=== PATIENT | female | born 1930 | race Native Hawaiian/Other Pacific Islander ===

== ENCOUNTER 2016-09-08 12:53 | Inpatient (IN) | payer OTHER ==
[~2016-09-08 12:53] MED LIST: ACCURETIC PO; ACCURETIC1 TAB OR; ACET5TAB36 PO; ACYCLOVIR800 MG PO; APAP/TRAMADL1 TAB PO; ATEN25TA21 PO; CARV6.25 PO; CLARITIN10 MG PO; COUMADIN1 MG PO; ESZO3TAB PO; FEXOFENADINE HC60 MG PO; GRALISE600 MG PO; HCTZ PO; HYDR25TA15 PO; LIPITOR10 MG PO; LOFIBRA67 MG PO; LUNESTA3 MG PO; MECL25TA84 PO; METH5TAB13 PO; METHYLPHENID5 MG PO; NEURONTIN 100M100 MG PO; WARF1TAB7 PO; WARF2TAB7 PO; [UNRECOGNIZED DRUG - OTHER] PO; [UNRECOGNIZED DRUG - OTHER] PO
== END 2016-10-02 08:09 | disposition still patient (30) ==
LOC: PAVB 12:53
PROVIDERS: ADMIT Family Medicine
DX: Z51.89 Encounter for other specified aftercare (principal)

== ENCOUNTER 2016-09-09 16:01 | Outpatient (CLI) | payer OTHER ==
[2016-09-09 16:15] LABS: PLATELET COUNT 257 K/uL (152-353)
[2016-09-09 17:03] LABS: POTASSIUM 3.6 mmol/L (3.6-5.2)
== END 2016-09-09 19:12 | disposition home or self-care (01) ==
LOC: LAB 16:01
PROVIDERS: Family Medicine
DX: I10 Essential (primary) hypertension (principal); E78.4 Other hyperlipidemia
CPT/HCPCS: 36415; 80053; 80061; 85027

== ENCOUNTER 2016-09-30 09:00 | Outpatient (CLI) | payer OTHER | END 2016-09-30 19:45 | disposition home or self-care (01) | LOC: RAD 09:00 | DX: M81.0 Age-related osteoporosis without current pathological fracture (principal) ==

== ENCOUNTER 2016-10-01 15:17 | Outpatient (CLI) | payer OTHER ==
[2016-10-01 16:00] LABS: POTASSIUM 3.7 mmol/L (3.6-5.2)
== END 2016-10-01 17:00 | disposition home or self-care (01) ==
LOC: LAB 15:17
PROVIDERS: Family Medicine
DX: R41.3 Other amnesia (principal)
CPT/HCPCS: 36415; 80053; 82607; 82746; 84443; 85651; 86039

== ENCOUNTER 2016-10-02 08:58 | Inpatient (IN) | payer OTHER | END 2016-11-01 09:15 | disposition still patient (30) | LOC: PAVB 08:58 | PROVIDERS: ADMIT Family Medicine | DX: Z51.89 Encounter for other specified aftercare (principal) ==

== ENCOUNTER 2016-10-04 15:22 | Outpatient (CLI) | payer OTHER | END 2016-10-04 16:22 | disposition home or self-care (01) | LOC: CT 15:22 | DX: R41.3 Other amnesia (principal); G43.809 Other migraine, not intractable, without status migrainosus ==

== ENCOUNTER 2016-10-13 13:54 | Outpatient (CLI) | payer OTHER | END 2016-10-13 19:09 | disposition home or self-care (01) | LOC: RESP 13:54 | DX: I61.8 Other nontraumatic intracerebral hemorrhage (principal); R41.3 Other amnesia; G43.809 Other migraine, not intractable, without status migrainosus ==

== ENCOUNTER 2016-10-16 09:44 | Emergency (ER) | payer OTHER ==
[~2016-10-16] VITALS: Ht 157.5 cm; Wt 75.8 kg
[2016-10-16 10:11] LABS: PLATELET COUNT 268 K/uL (152-353)
[2016-10-16 10:18] LABS: POTASSIUM 3.9 mmol/L (3.6-5.2)
[2016-10-16 11:16] VITALS: BP 110/76; TEMP 98
== END 2016-10-16 11:16 | disposition home or self-care (01) ==
LOC: ED 09:44
DX: S86.812A Strain of other muscle(s) and tendon(s) at lower leg level, left leg, initial encounter (principal); S86.811A Strain of other muscle(s) and tendon(s) at lower leg level, right leg, initial encounter; M79.1 Myalgia; X58.XXXA Exposure to other specified factors, initial encounter; Y93.89 Activity, other specified; Y92.89 Other specified places as the place of occurrence of the external cause; Y99.8 Other external cause status
CPT/HCPCS: 80053; 85027; 96372; 99283; J1885

== ENCOUNTER 2016-10-20 13:28 | Outpatient (CLI) | payer OTHER | END 2016-10-20 19:07 | disposition home or self-care (01) | LOC: LAB 13:28 | DX: Z16.24 Resistance to multiple antibiotics (principal) | CPT/HCPCS: 87081 ==

== ENCOUNTER 2016-10-22 18:54 | Outpatient (CLI) | payer OTHER ==
[2016-10-22 19:02] LABS: PLATELET COUNT 312 K/uL (152-353)
[2016-10-22 19:15] LABS: POTASSIUM 3.5 mmol/L (3.6-5.2)
== END 2016-10-22 19:23 | disposition home or self-care (01) ==
LOC: LAB 18:54
PROVIDERS: Family Medicine
DX: R60.0 Localized edema (principal)
CPT/HCPCS: 80053; 83880; 85027

== ENCOUNTER 2016-11-01 10:20 | Inpatient (IN) | payer OTHER | END 2016-12-02 10:14 | disposition still patient (30) | LOC: PAVB 10:20 | PROVIDERS: ADMIT Internal Medicine | DX: Z51.89 Encounter for other specified aftercare (principal) ==

== ENCOUNTER 2016-11-15 10:16 | Outpatient (CLI) | payer OTHER ==
[2016-11-15 10:42] LABS: POTASSIUM 3.7 mmol/L (3.6-5.2)
== END 2016-11-15 19:22 | disposition home or self-care (01) ==
LOC: LAB 10:16
PROVIDERS: Internal Medicine
DX: R60.0 Localized edema (principal)
CPT/HCPCS: 80053

== ENCOUNTER 2016-11-23 15:12 | Outpatient (CLI) | payer OTHER ==
[2016-11-23 21:59] LABS: POTASSIUM 4.5 mmol/L (3.6-5.2)
== END 2016-11-23 16:30 | disposition home or self-care (01) ==
LOC: RESP 15:12 → LAB 15:12
PROVIDERS: Internal Medicine
DX: R60.0 Localized edema (principal)
CPT/HCPCS: 36415; 80048; 93306

== ENCOUNTER 2016-12-02 10:20 | Inpatient (IN) | payer OTHER | END 2017-01-01 15:24 | disposition still patient (30) | LOC: PAVB 10:20 | PROVIDERS: ADMIT Internal Medicine | DX: Z51.89 Encounter for other specified aftercare (principal) ==

== ENCOUNTER 2017-01-01 15:51 | Inpatient (IN) | payer OTHER | END 2017-02-01 09:46 | disposition still patient (30) | LOC: PAVB 15:51 | PROVIDERS: ADMIT Internal Medicine | DX: Z51.89 Encounter for other specified aftercare (principal) ==

== ENCOUNTER 2017-02-01 11:10 | Inpatient (IN) | payer OTHER | END 2017-03-04 08:44 | disposition still patient (30) | LOC: PAVB 11:10 | PROVIDERS: ADMIT Internal Medicine | DX: Z51.89 Encounter for other specified aftercare (principal) ==

== ENCOUNTER 2017-02-17 15:15 | Outpatient (CLI) | payer OTHER ==
[2017-02-17 15:37] LABS: POTASSIUM 3.6 mmol/L (3.6-5.2)
== END 2017-02-17 19:36 | disposition home or self-care (01) ==
LOC: LAB 15:15
PROVIDERS: Internal Medicine
DX: Z79.899 Other long term (current) drug therapy (principal); Z51.81 Encounter for therapeutic drug level monitoring
CPT/HCPCS: 36415; 80048

== ENCOUNTER 2017-03-04 09:26 | Inpatient (IN) | payer OTHER ==
[2017-03-10] MEDS ORDERED: CADUET10 MG/10 M OR (01:11)
[2017-03-10] MEDS ORDERED: ASPIRIN 81 LOW81 MG PO (01:12)
[2017-03-10] MEDS ORDERED: GUAI200S10 PO (01:16)
[2017-03-10] MEDS ORDERED: LUMIGAN0.01 % OP (01:17)
[2017-03-10] MEDS ORDERED: MELOXICAM7.5 MG OR (01:19)
[2017-03-10] MEDS ORDERED: MONT10TA PO (01:20)
[2017-03-10] MEDS ORDERED: DIOVAN HCT160 MG/25 PO (01:21)
[2017-03-10] MEDS ORDERED: FURO20TA67 PO (01:23)
[2017-03-10] MEDS ORDERED: CETI10TA PO (01:24)
[2017-03-10] MEDS ORDERED: FURO40TA93 PO (01:24)
[2017-03-10] MEDS ORDERED: ONDA4TAB3 PO (01:26)
[2017-03-10] MEDS ORDERED: CYCL10TA35 PO (01:26)
[2017-03-10] MEDS ORDERED: TRAM50TA PO (01:28)
[2017-03-12] MEDS ORDERED: AMLO2.5T PO (15:49)
[2017-03-20 04:22] LABS: PLATELET COUNT 307 K/uL (152-353)
[2017-03-23 07:33] LABS: PLATELET COUNT 416 K/uL (152-353)
== END 2017-04-03 10:08 | disposition still patient (30) ==
LOC: PAVB 09:26
PROVIDERS: ADMIT Internal Medicine
DX: D53.9 Nutritional anemia, unspecified (principal); K29.71 Gastritis, unspecified, with bleeding; R55 Syncope and collapse; N17.9 Acute kidney failure, unspecified; F43.21 Adjustment disorder with depressed mood; G62.9 Polyneuropathy, unspecified; Z95.0 Presence of cardiac pacemaker
CPT/HCPCS: 36415; 85014; 85018; 85027

== ENCOUNTER 2017-03-09 11:26 | Outpatient (CLI) | payer OTHER ==
[2017-03-09 11:42] LABS: PLATELET COUNT 302 K/uL (152-353)
[2017-03-10] MEDS ORDERED: CADUET10 MG/10 M OR (01:11)
[2017-03-10] MEDS ORDERED: ASPIRIN 81 LOW81 MG PO (01:12)
[2017-03-10] MEDS ORDERED: GUAI200S10 PO (01:16)
[2017-03-10] MEDS ORDERED: LUMIGAN0.01 % OP (01:17)
[2017-03-10] MEDS ORDERED: MELOXICAM7.5 MG OR (01:19)
[2017-03-10] MEDS ORDERED: MONT10TA PO (01:20)
[2017-03-10] MEDS ORDERED: DIOVAN HCT160 MG/25 PO (01:21)
[2017-03-10] MEDS ORDERED: FURO20TA67 PO (01:23)
[2017-03-10] MEDS ORDERED: CETI10TA PO (01:24)
[2017-03-10] MEDS ORDERED: FURO40TA93 PO (01:24)
[2017-03-10] MEDS ORDERED: ONDA4TAB3 PO (01:26)
[2017-03-10] MEDS ORDERED: CYCL10TA35 PO (01:26)
[2017-03-10] MEDS ORDERED: TRAM50TA PO (01:28)
== END 2017-03-09 12:30 | disposition home or self-care (01) ==
LOC: LAB 11:26
PROVIDERS: Internal Medicine
DX: I10 Essential (primary) hypertension (principal)
CPT/HCPCS: 36415; 80053; 85027

== ENCOUNTER 2017-03-09 18:08 | Observation (INO) | payer OTHER ==
[~2017-03-09] VITALS: Ht 160 cm; Wt 77.4 kg
[2017-03-09 18:10] VITALS: BP 92/47; TEMP 97.6
[2017-03-09 18:37] LABS: PLATELET COUNT 375 K/uL (152-353)
[2017-03-09 18:51] LABS: POTASSIUM 3.7 mmol/L (3.6-5.2); SODIUM 130 mmol/L (136-145)
[2017-03-09 22:16] VITALS: BP 126/59; TEMP 98; Ht 160 cm; Wt 77.4 kg
[2017-03-10] VITALS: BP 97/54; TEMP 97.7
[2017-03-10] MEDS ORDERED: CADUET10 MG/10 M OR (01:11)
[2017-03-10] MEDS ORDERED: ASPIRIN 81 LOW81 MG PO (01:12)
[2017-03-10] MEDS ORDERED: GUAI200S10 PO (01:16)
[2017-03-10] MEDS ORDERED: LUMIGAN0.01 % OP (01:17)
[2017-03-10] MEDS ORDERED: MELOXICAM7.5 MG OR (01:19)
[2017-03-10] MEDS ORDERED: MONT10TA PO (01:20)
[2017-03-10] MEDS ORDERED: DIOVAN HCT160 MG/25 PO (01:21)
[2017-03-10] MEDS ORDERED: FURO20TA67 PO (01:23)
[2017-03-10] MEDS ORDERED: FURO40TA93 PO (01:24)
[2017-03-10] MEDS ORDERED: CETI10TA PO (01:24)
[2017-03-10] MEDS ORDERED: ONDA4TAB3 PO (01:26)
[2017-03-10] MEDS ORDERED: CYCL10TA35 PO (01:26)
[2017-03-10] MEDS ORDERED: TRAM50TA PO (01:28)
[2017-03-10 04:00] VITALS: BP 100/52; TEMP 98.1
[2017-03-10 05:38] LABS: POTASSIUM 3.3 mmol/L (3.6-5.2)
[2017-03-10 05:39] LABS: PLATELET COUNT 262 K/uL (152-353)
[2017-03-10 08:00] VITALS: BP 121/61; TEMP 99
[2017-03-10 12:00] VITALS: BP 115/49; TEMP 99.3
[2017-03-10 16:00] VITALS: BP 127/60; TEMP 99.2
== END 2017-03-10 16:50 ==
LOC: ED 18:08 → MED/SURG 19:50
PROVIDERS: Internal Medicine; ADMIT Family Medicine
DX: E86.0 Dehydration (principal); R55 Syncope and collapse; I95.89 Other hypotension
CPT/HCPCS: 36415; 80053; 81000; 82550; 83605; 83735; 83880; 84100; 84484; 85027; 87040; 93005; 96361; 96365; 96366; 96367; 99220; 99284; G0378; J0696; J1885

== ENCOUNTER 2017-03-11 11:17 | Emergency (ER) | payer OTHER ==
[~2017-03-11] VITALS: Ht 160 cm; Wt 79.4 kg
[~2017-03-11 11:17] MED LIST changes: +ASPIRIN 81 LOW81 MG PO; +CADUET10 MG/10 M OR; +CETI10TA PO; +CYCL10TA35 PO; +DIOVAN HCT160 MG/25 PO; +FURO20TA67 PO; +FURO40TA93 PO; +GUAI200S10 PO; +LUMIGAN0.01 % OP; +MELOXICAM7.5 MG OR; +MONT10TA PO; +ONDA4TAB3 PO; +TRAM50TA PO
[2017-03-11 12:07] LABS: PLATELET COUNT 318 K/uL (152-353)
[2017-03-11 12:14] LABS: POTASSIUM 3.6 mmol/L (3.6-5.2)
[2017-03-11 12:46] VITALS: BP 110/70; TEMP 98.7
[2017-03-12] MEDS ORDERED: AMLO2.5T PO (15:49)
== END 2017-03-11 13:13 | disposition home or self-care (01) ==
LOC: ED 11:17
DX: K92.2 Gastrointestinal hemorrhage, unspecified (principal)
CPT/HCPCS: 36415; 80053; 82271; 83986; 85027; 96360; 99284

== ENCOUNTER 2017-03-12 03:51 | Outpatient (CLI) | payer OTHER ==
[2017-03-12 04:30] LABS: PLATELET COUNT 276 K/uL (152-353)
[2017-03-12] MEDS ORDERED: AMLO2.5T PO (15:49)
== END 2017-03-12 04:55 | disposition home or self-care (01) ==
LOC: LAB 03:51
PROVIDERS: Internal Medicine
DX: D64.89 Other specified anemias (principal); K92.2 Gastrointestinal hemorrhage, unspecified
CPT/HCPCS: 85027

== ENCOUNTER 2017-03-12 12:06 | Inpatient (IN) | payer OTHER ==
[~2017-03-12] VITALS: Ht 160 cm; Wt 78.1 kg
[2017-03-12 14:39] LABS: PLATELET COUNT 327 K/uL (152-353)
[2017-03-12 14:45] VITALS: BP 83/45; TEMP 97.8; Ht 160 cm; Wt 78.1 kg
[2017-03-12 14:56] LABS: POTASSIUM 3.7 mmol/L (3.6-5.2)
[2017-03-12] MEDS ORDERED: AMLO2.5T PO (15:49)
[2017-03-12 16:00] VITALS: BP 83/45; TEMP 97.8
[2017-03-12 20:00] VITALS: BP 160/55; TEMP 98.9
[2017-03-13] VITALS: BP 114/51; TEMP 98.5
[2017-03-13 04:00] VITALS: BP 117/62; TEMP 98.3
[2017-03-13 04:51] LABS: PLATELET COUNT 232 K/uL (152-353)
[2017-03-13 05:07] LABS: POTASSIUM 3.5 mmol/L (3.6-5.2)
[2017-03-13 08:28] VITALS: BP 105/54; TEMP 98.6
[2017-03-13 11:32] VITALS: BP 110/55; TEMP 98.7
[2017-03-13 16:00] VITALS: BP 118/65; TEMP 98.8
[2017-03-13 20:00] VITALS: BP 125/65; TEMP 98.9
[2017-03-14] VITALS (16 sets, daily range): BP systolic 109–140; BP diastolic 6–85; TEMP 98–99
[2017-03-14 10:32] LABS: PLATELET COUNT 249 K/uL (152-353)
[2017-03-14 10:51] LABS: POTASSIUM 3.5 mmol/L (3.6-5.2)
[2017-03-14 17:46] LABS: PLATELET COUNT 268 K/uL (152-353)
[2017-03-14 17:48] LABS: PARTIAL THROMBOPLASTIN TIME 19.7 SECONDS (24.5-33.6)
[2017-03-14 17:49] LABS: POTASSIUM 3.5 mmol/L (3.6-5.2)
[2017-03-15] VITALS (26 sets, daily range): BP systolic 116–148; BP diastolic 49–79; TEMP 98.1–99.1
[2017-03-15 05:45] LABS: POTASSIUM 3.6 mmol/L (3.6-5.2)
[2017-03-15 05:56] LABS: PLATELET COUNT 211 K/uL (152-353)
[2017-03-16] VITALS (22 sets, daily range): BP systolic 108–150; BP diastolic 36–83; TEMP 97.7–989
[2017-03-16 06:54] LABS: PLATELET COUNT 216 K/uL (152-353)
[2017-03-16 07:04] LABS: POTASSIUM 3.5 mmol/L (3.6-5.2)
[2017-03-17] VITALS (24 sets, daily range): BP systolic 115–151; BP diastolic 49–98; TEMP 98–99.3
[2017-03-17 06:43] LABS: PLATELET COUNT 179 K/uL (152-353)
[2017-03-17 07:57] LABS: POTASSIUM 4.4 mmol/L (3.6-5.2)
[2017-03-18] VITALS (19 sets, daily range): BP systolic 120–157; BP diastolic 48–70; TEMP 98.2–98.9
[2017-03-18 06:03] LABS: POTASSIUM 3.5 mmol/L (3.6-5.2); SODIUM 132 mmol/L (136-145)
[2017-03-18 07:03] LABS: PLATELET COUNT 196 K/uL (152-353)
[2017-03-19 04:00] VITALS: BP 162/60; TEMP 98.3
[2017-03-19 05:51] LABS: PLATELET COUNT 262 K/uL (152-353)
[2017-03-19 05:58] LABS: POTASSIUM 3.9 mmol/L (3.6-5.2)
[2017-03-19 08:00] VITALS: BP 135/63; TEMP 98.2
[2017-03-19 12:00] VITALS: BP 147/74; TEMP 97.6
== END 2017-03-19 14:50 | DRG 378 ==
LOC: MED/SURG 12:06 → ICU 12:06 → MED/SURG 12:06 → ICU 03-14 16:40 → MED/SURG 03-14 16:40
PROVIDERS: Student in an Organized Health Care Education/Training Program; ADMIT Family Medicine
PROC: 30233N1 Transfusion of Nonautologous Red Blood Cells into Peripheral Vein, Percutaneous Approach (ICD-10-PCS; 2017-03-12)
PROC: 30233N1 Transfusion of Nonautologous Red Blood Cells into Peripheral Vein, Percutaneous Approach (ICD-10-PCS; 2017-03-14)
PROC: 30233K1 Transfusion of Nonautologous Frozen Plasma into Peripheral Vein, Percutaneous Approach (ICD-10-PCS; 2017-03-14)
PROC: 0DJ08ZZ Inspection of Upper Intestinal Tract, Via Natural or Artificial Opening Endoscopic (ICD-10-PCS; principal; 2017-03-15)
PROC: 30233N1 Transfusion of Nonautologous Red Blood Cells into Peripheral Vein, Percutaneous Approach (ICD-10-PCS; 2017-03-15)
PROC: 02HV33Z Insertion of Infusion Device into Superior Vena Cava, Percutaneous Approach (ICD-10-PCS; 2017-03-15)
PROC: B548ZZA Ultrasonography of Superior Vena Cava, Guidance (ICD-10-PCS; 2017-03-15)
DX: K92.2 Gastrointestinal hemorrhage, unspecified (principal); E87.1 Hypo-osmolality and hyponatremia; F01.50 Vascular dementia, unspecified severity, without behavioral disturbance, psychotic disturbance, mood disturbance, and anxiety; I10 Essential (primary) hypertension; I48.91 Unspecified atrial fibrillation; G89.29 Other chronic pain; R51 Headache; Z86.73 Personal history of transient ischemic attack (TIA), and cerebral infarction without residual deficits; Z79.1 Long term (current) use of non-steroidal anti-inflammatories (NSAID); K26.3 Acute duodenal ulcer without hemorrhage or perforation; K29.60 Other gastritis without bleeding; K44.9 Diaphragmatic hernia without obstruction or gangrene; R73.9 Hyperglycemia, unspecified; D64.89 Other specified anemias; J44.9 Chronic obstructive pulmonary disease, unspecified; M15.8 Other polyosteoarthritis; M85.88 Other specified disorders of bone density and structure, other site
CPT/HCPCS: 36415; 36430; 36591; 51702; 74022; 80048; 80053; 81000; 82271; 82550; 82948; 82962; 83605; 83735; 83880; 83986; 84100; 84478; 84484; 85014; 85018; 85027; 85610; 85730; 86850; 86900; 86901; 86922; 87040; 93005; 94760; 96360; 96361; 96365; 96366; 96367; 96372; 96375; 99220; 99284; C1751; G0378; J0132; J0696; J1200; J1815; J1885; J2001; J2060; J2250; J2405; J2550; J2704; J2780; J3010; J3490; P9016; P9017

== ENCOUNTER 2017-04-03 10:12 | Inpatient (IN) | payer OTHER ==
[~2017-04-03 10:12] MED LIST changes: +AMLO2.5T PO
== END 2017-05-04 12:59 | disposition still patient (30) ==
LOC: PAVB 10:12
PROVIDERS: ADMIT Internal Medicine

== ENCOUNTER 2017-04-13 15:42 | Outpatient (CLI) | payer OTHER ==
[2017-04-13 17:47] LABS: PLATELET COUNT 202 K/uL (152-353)
[2017-04-13 17:51] LABS: POTASSIUM 4.4 mmol/L (3.6-5.2)
== END 2017-04-13 21:20 | disposition home or self-care (01) ==
LOC: LAB 15:42
PROVIDERS: Internal Medicine
DX: R11.0 Nausea (principal); R19.7 Diarrhea, unspecified; R79.89 Other specified abnormal findings of blood chemistry
CPT/HCPCS: 36415; 80048; 83880; 85027

== ENCOUNTER 2017-04-26 05:17 | Outpatient (CLI) | payer OTHER | END 2017-04-26 18:54 | disposition home or self-care (01) | LOC: LAB 05:17 | DX: R30.0 Dysuria (principal) | CPT/HCPCS: 81000; 87077; 87086; 87088; 87186 ==

== ENCOUNTER 2017-05-04 14:02 | Inpatient (IN) | payer OTHER | END 2017-06-03 09:22 | disposition still patient (30) | LOC: PAVB 14:02 | PROVIDERS: ADMIT Internal Medicine ==

== ENCOUNTER 2017-05-11 04:53 | Outpatient (CLI) | payer OTHER | END 2017-05-11 18:55 | disposition home or self-care (01) | LOC: LAB 04:53 | DX: Z79.899 Other long term (current) drug therapy (principal); Z51.81 Encounter for therapeutic drug level monitoring | CPT/HCPCS: 36415; 80162; 82607 ==

== ENCOUNTER 2017-05-23 06:06 | Outpatient (CLI) | payer OTHER ==
[2017-05-23 08:36] LABS: POTASSIUM 3.7 mmol/L (3.6-5.2)
== END 2017-05-23 19:02 | disposition home or self-care (01) ==
LOC: LAB 06:06
PROVIDERS: Internal Medicine
DX: R06.09 Other forms of dyspnea (principal)
CPT/HCPCS: 80048; 83880

== ENCOUNTER 2017-05-24 05:44 | Outpatient (CLI) | payer OTHER | END 2017-05-24 19:00 | disposition home or self-care (01) | LOC: LAB 05:44 | DX: E55.9 Vitamin D deficiency, unspecified (principal) | CPT/HCPCS: 82306 ==

== ENCOUNTER 2017-06-03 09:53 | Inpatient (IN) | payer OTHER | END 2017-07-04 09:35 | disposition still patient (30) | LOC: PAVB 09:53 | PROVIDERS: ADMIT Internal Medicine ==

== ENCOUNTER 2017-07-04 10:35 | Inpatient (IN) | payer OTHER | END 2017-08-04 09:57 | disposition still patient (30) | LOC: PAVB 10:35 | PROVIDERS: ADMIT Internal Medicine ==

== ENCOUNTER 2017-07-22 10:47 | Outpatient (CLI) | payer OTHER | END 2017-07-22 19:30 | disposition home or self-care (01) | LOC: LAB 10:47 | DX: R11.2 Nausea with vomiting, unspecified (principal); R50.9 Fever, unspecified | CPT/HCPCS: 87804 ==

== ENCOUNTER 2017-08-04 10:54 | Inpatient (IN) | payer OTHER | END 2017-09-01 09:21 | disposition still patient (30) | LOC: PAVB 10:54 | PROVIDERS: ADMIT Internal Medicine | DX: S72.002D Fracture of unspecified part of neck of left femur, subsequent encounter for closed fracture with routine healing (principal); M25.552 Pain in left hip; R26.89 Other abnormalities of gait and mobility; R53.1 Weakness; J44.9 Chronic obstructive pulmonary disease, unspecified; D53.9 Nutritional anemia, unspecified; N17.9 Acute kidney failure, unspecified; I48.91 Unspecified atrial fibrillation; M85.80 Other specified disorders of bone density and structure, unspecified site; Z95.0 Presence of cardiac pacemaker ==

== ENCOUNTER 2017-09-01 10:15 | Inpatient (IN) | payer OTHER ==
[2017-09-06 05:15] LABS: PLATELET COUNT 257 K/uL (152-353)
[2017-09-06 05:38] LABS: POTASSIUM 3.2 mmol/L (3.6-5.2)
== END 2017-09-26 18:00 | disposition expired ==
LOC: PAVB 10:15
PROVIDERS: ADMIT Internal Medicine
DX: S72.002D Fracture of unspecified part of neck of left femur, subsequent encounter for closed fracture with routine healing (principal); R26.89 Other abnormalities of gait and mobility; R53.1 Weakness; M25.552 Pain in left hip; N17.9 Acute kidney failure, unspecified; D53.9 Nutritional anemia, unspecified; I48.91 Unspecified atrial fibrillation; J44.9 Chronic obstructive pulmonary disease, unspecified; M85.80 Other specified disorders of bone density and structure, unspecified site; Z95.0 Presence of cardiac pacemaker
CPT/HCPCS: 36415; 80053; 80061; 85027

== ENCOUNTER 2017-09-26 09:48 | Observation (INO) | payer OTHER ==
[2017-09-26] VITALS (10 sets, daily range): BP systolic 107–210; BP diastolic 46–103; TEMP 96.8–97.3; Ht 162.6 cm; Wt 72.3 kg
[~2017-09-26] VITALS: Ht 162.6 cm; Wt 72.3 kg
[2017-09-26 10:06] LABS: PLATELET COUNT 349 K/uL (152-353)
[2017-09-26 10:42] LABS: PARTIAL THROMBOPLASTIN TIME 23.4 SECONDS (24.5-33.6)
--- NOTE | 2017-09-26 14:00 | NUR ---
PT ADMITTED FROM ER WITH RIGHT INTRAPARENCHYMAR BLEED. PT UNRESPONSIVE WITH PUPILS 4MM AND FIXED. NO RESPONSE TO LIGHT. NONREBREATHER MASK APPLIED 98%. RR 2/MIN WITH PERIODS OF APNEA. NO BREATH SOUNDS NOTED AT THIS TIME. TEMP 97.3 PULSE 85 BP 118/79. 18 F [place] WITH NO OUTPUT NOTED AT THIS TIME. SUCTION EQUIPTMENT AT BEDSIDE. PULSES PRESENT. SKIN IS WARM. BED IN LOWEST POSITION WITH SR UP X2. COMFORT MEASURES TAKEN. FAMILY AT BEDSIDE.
--- NOTE | 2017-09-26 16:00 | NUR ---
DR BARRAGAN AT BEDSIDE TO TALK TO FAMILY ABOUT PT STATUS. FAMILY EDUCATED ON DISEASE PROCESS. PT PULSE WEAK WITH APNEIC PERIODS OF BREATHING. MOTTLING NOW NOTED ON LOWER EXTREMITIES. BED IN LOWEST POSITION SR UP X2.
== END 2017-09-26 18:05 | disposition expired ==
LOC: ED 09:48 → MED/SURG 11:50
PROVIDERS: ADMIT Emergency Medicine
DX: I61.4 Nontraumatic intracerebral hemorrhage in cerebellum (principal); I48.91 Unspecified atrial fibrillation; I25.10 Atherosclerotic heart disease of native coronary artery without angina pectoris; J44.9 Chronic obstructive pulmonary disease, unspecified; I10 Essential (primary) hypertension; D64.89 Other specified anemias; E78.4 Other hyperlipidemia; E11.42 Type 2 diabetes mellitus with diabetic polyneuropathy
CPT/HCPCS: 36415; 36600; 51702; 80053; 82550; 82805; 84484; 85027; 85610; 85730; 93005; 96374; 96375; 99220; 99285; G0378; J2405; J3490